=== PATIENT | female | born 1950 | race Caucasian/White ===

== ENCOUNTER 2016-05-12 05:45 | Day surgery (SDC) | payer MEDICARE ==
[2016-05-10 10:11] LABS: HEMATOCRIT 45.4 % (36.0-48.0); MCH 30.4 pg (26.0-34.0); MCV 92.1 fL (80.0-100.0); MEAN PLATELET VOLUME 10.1 fL (7.4-10.4); RBC 4.93 10x6/uL (4.00-5.40); RDW 13.2 % (11.5-14.5); WBC 10.5 10x3/uL (4.8-10.8)
[~2016-05-12] VITALS: Ht 162.6 cm; Wt 53.5 kg
[~2016-05-12 05:45] MED LIST: BIOTIN5 MG PO; BORON PO; CINNAMON500 MG PO; CO Q-10100 MG PO; DHEA25 M1 PO; ESTROGEN CREAM OTH; FISH OIL 1,0001 CA1 PO; FLUTICASONE PRO16 GM NASAL; LISINOPRIL2.5 MG PO; MAG; MIACALCIN NASA3.7 ML NASAL; MULTI-DAY VITAM1 TAB PO; POTASSIUM; PROBIOTIC1 EAC1 PO; PROGESTERONE; SINGULAIR10 MG PO; STRONIUM PO; VITAMIN D31000 UNIT PO
[2016-05-12 08:26] VITALS: BP 158/91; Ht 162.6 cm; Wt 53.5 kg
--- NOTE | 2016-05-12 12:05 | NUR ---
PILLOW BETWEEN ARMS
--- NOTE | 2016-05-12 12:07 | NUR ---
GROUNDING PADS X 2 PLACED ON AMAYA. THIGHS PER D.N. L/N [id number] X2, EXP DATE 02/27/2018
--- NOTE | 2016-05-12 14:11 | NUR ---
1345 IV DC WITH CATHER TIP INTACT
--- NOTE | 2016-05-19 09:40 | HP ---
PATIENT: RAJENDRA SMITH MEDICAL RECORD: [id number] ACCOUNT: [id number] LOCATION:[facility] : 46 ADMISSION DATE: 05/12/16 HISTORY AND PHYSICAL EXAMINATION CHIEF COMPLAINT: Colon polyps. HISTORY OF PRESENT ILLNESS: The patient has a difficult airway during her intubation. The patient had a colonoscopy with argon plasma coagulation therapy last year. The patient's assistant administrator is Dr. Santoyo. I have reviewed the endoscopic photographs from last year. The patient was also found to have an anal papilla last year. The risks, possible complications, alternatives to colonoscopy with argon plasma coagulation therapy were explained to the patient. She elects to proceed. During the colonoscopy last year, the patient was found to have a tortuous elongated colon. The tattoos were easily identifiable. There was only a small amount of residual polypoid tissue present. I stated in my note that if during this year's colonoscopy, there has not been much polypoid regrowth, I would return the patient back to Dr. Santoyo's care for surveillance colonoscopies. SOCIAL HISTORY: Nonsmoker. PAST MEDICAL AND SURGICAL HISTORY: Asthma, hypertension, occasional reflux symptoms, history of appendectomy, history of syncope, history of arthritis, history of difficult airway, and also panic attacks. HOME MEDICINES: The last list of home medicines of the patient includes lisinopril, Singulair, Flonase, probiotics, calcitonin as well as biotin. ALLERGIES: MORPHINE, VALIUM, VICODIN, SHRIMP AND EGGS. REVIEW OF SYSTEMS: Positive for bloating. No hematochezia. PHYSICAL EXAMINATION: GENERAL: The patient does not appear acutely ill. She does not appear chronically ill. The entire physical examination was performed in the presence of a female nurse. VITAL SIGNS: Reviewed. HEAD: External ears appear normal. EYES: Extraocular movements are intact. NECK: Trachea is midline. CHEST: No intercostal retractions. PULMONARY: Nonlabored, no stridor. ABDOMEN: Nontender. IMPRESSION: History of complex colon polyps, which have been tattooed. PLAN: Colonoscopy with argon plasma salvage grinder. TRANSINT:[id number] Voice Confirmation ID: [id number] DOCUMENT ID: [id number] CC: Dr. Maria Paulson, HISTORY AND PHYSICAL [id number] SARAHRAJENDRAEUGENIE MENDEZ MD at 0940 CC: ASAF SANTOYO MD and DR MARIA PAULSON [id number] DICTATION DATE: 05/12/16 1135 FOOD OR BAGGAGE HANDLING RAMPMAN: 05/12/16 1353 [facility] [place] 05/12/16 [facility] [address] [place] [address]
--- NOTE | 2016-05-19 09:40 | OP ---
PATIENT NAME: RAJENDRA SMITH MEDICAL RECORD: [id number] :46 LOCATION:D.OPS ADMISSION DATE: SURGEON: EUGENIE GUTHRIE MD DATE OF OPERATION: 05/12/2016 PREOPERATIVE DIAGNOSIS: History of complex colon polyps, which have been tattooed. POSTOPERATIVE DIAGNOSIS: History of complex colon polyps, which have been tattooed with no evidence of polypoid regrowth. PROCEDURES: Total colonoscopy to cecum. SURGEON: Eugenie Guthrie MD. CAPTAIN FISHING VESSEL: None. BLOOD LOSS: Minimal. ANESTHESIA: General. COMPLICATIONS: None. The patient was performed under general anesthesia as I felt we are going to need to use the argon plasma on site services specialist as a polypectomy device and this would require general anesthesia. As it turns out, the patient had no polypoid regrowth at either tattooed site. There was moderate left-sided diverticulosis present. It was a little difficult to get around to the cecum during her colonoscopy last year, but this year, it was fairly easy. OPERATIVE COURSE: The patient was conveyed to the operating room electively on 05/12/2016. General anesthesia was induced by the anesthesia staff. The patient was placed in the Curtis position. A digital rectal examination was performed. A colonoscope was inserted through the anus. It was easily advanced to the cecum. Upon withdrawal, I irrigated and aspirated extensively. I dragged the folds. The pullback was greater than 14-minute pullback. The tattoos were noted. No masses were noted. No polyps were noted. A retroflexed view was obtained in the rectum. There was a small anal papilla. I then unretroflexed the scope and removed it under direct vision. I will see the patient on a p.r.n. basis. I will return the patient's endoscopic care back over to Dr. Santoyo, who can perform surveillance colonoscopies from now on on the patient. My recommendation would be that the patient undergo the next surveillance colonoscopy in 1 year. TRANSINT:[id number] Voice Confirmation ID: [id number] DOCUMENT ID: [id number] CC: Dr. Maria Paulson, OPERATIVE REPORT [id number] RAJENDRA SMITH EUGENIE GUTHRIE MD at 0940 CC: DR. MARIA PAULSON and ASAF SANTOYO MD [id number] DICTATION DATE: 05/12/16 1252 TRACER CLERK: 05/12/16 1514 [facility] [place] 05/12/16 [facility] [address] [place] [address]
== END 2016-05-12 14:00 | disposition home or self-care (01) ==
LOC: D.OPS 05:45 → D.PAN 08:35 → D.OPS 09:15 → D.PAN 09:15 → D.OPS 14:00
PROVIDERS: Anesthesiology
DX: K57.30 Diverticulosis of large intestine without perforation or abscess without bleeding (principal); Z86.010 Personal history of colon polyps; J45.909 Unspecified asthma, uncomplicated; M19.90 Unspecified osteoarthritis, unspecified site; I10 Essential (primary) hypertension; F41.0 Panic disorder [episodic paroxysmal anxiety]; Z79.899 Other long term (current) drug therapy; Z88.5 Allergy status to narcotic agent; Z91.013 Allergy to seafood; Z91.012 Allergy to eggs

== ENCOUNTER → 2019-09-29 11:29 | Outpatient (CLI) | payer MEDICARE ==
[2016-05-12 08:26] VITALS: BMI 20.3
[2019-09-29 12:16] LABS: BASOPHILS 0.1 % (0-2); EOSINOPHILS 1.1 % (0-7); HEMATOCRIT 44.1 % (36.0-48.0); HEMOGLOBIN 14.6 g/dL (12-16); IMMATURE GRANULOCYTES 0.1 % (0-5); LYMPHOCYTES 22.4 % (15-50); MCH 29.6 pg (26.0-34.0); MCHC 33.1 g/dL (31.0-37.0); MCV 89.5 fL (80.0-100.0); MEAN PLATELET VOLUME 9.9 fL (7.4-10.4); MONOCYTES 7.9 % (2-11); NEUTROPHILS 68.4 % (40-80); PLATELET COUNT 242 10x3/uL (130-400); RBC 4.93 10x6/uL (4.00-5.40); RDW 13.5 % (11.5-14.5); WBC 7.6 10x3/uL (4.8-10.8)
== END | disposition home or self-care (01) ==
LOC: D.LAB 11:29
PROVIDERS: ATTEND Internal Medicine Pulmonary Disease
DX: Z11.59 Encounter for screening for other viral diseases (principal)